=== PATIENT | female | born 1985 | race Caucasian/White ===

== ENCOUNTER → 2017-03-30 09:41 | Outpatient (CLI) | payer BC ==
[2009-11-07 07:42] VITALS: BMI 28.3
== END | disposition home or self-care (01) ==
LOC: D.NM 09:41
DX: R10.11 Right upper quadrant pain (principal)

== ENCOUNTER 2017-04-17 08:03 | Day surgery (SDC) | payer BC ==
[2017-04-16 09:47] LABS: HEMOGLOBIN 14.7 g/dL (12-16)
[~2017-04-17] VITALS: Ht 154.9 cm; Wt 74.8 kg
--- NOTE | ~2017-04-17 | HP ---
PATIENT: DERREK BLACKBURN MEDICAL RECORD: [id number] ACCOUNT: [id number] LOCATION:[facility] : 87 ADMISSION DATE: 04/17/17 HISTORY AND PHYSICAL EXAMINATION HISTORY OF PRESENT ILLNESS: The patient has biliary dyskinesia. She had low ejection fraction. She has a chronically high white count. This has already been worked up. She is to under go laparoscopic cholecystectomy, intraoperative cholangiography with a possible liver biopsy. The risks, possible complications and alternatives to the procedure were explained to the patient. She elects to proceed. This includes the risk of bleeding requiring an emergency reoperation, infection, common ductal injury and an open procedure. Her history and physical examination is unchanged from the history and physical on the chart. TRANSINT:[id number] Voice Confirmation ID: [id number] DOCUMENT ID: [id number] BANDAR WRIGHT MD CC: SERINA REYES MD and JERAMIE BALLARD MD [id number] DICTATION DATE: 04/17/17 1244 GENERAL MANAGER IN TRAINING: 04/17/17 1259 [address] [place] [id number] [place] [id number]
--- NOTE | ~2017-04-17 | OP ---
PATIENT NAME: DERREK BLACKBURN MEDICAL RECORD: [id number] :87 LOCATION:[facility] ADMISSION DATE: SURGEON: BANDAR WRIGHT MD DATE OF OPERATION: 04/17/2017 PREOPERATIVE DIAGNOSIS: Biliary dyskinesia. POSTOPERATIVE DIAGNOSIS: Biliary dyskinesia with hepatomegaly. PROCEDURES: 1. Laparoscopic cholecystectomy, intraoperative cholangiography without immediate surgeon interpretation. 2. An 18-gauge core needle liver biopsy. SURGEON: Bandar Wright MD. CANDY FORMING MACHINE OPERATOR: None. BLOOD LOSS: Minimal. ANESTHESIA: General. COMPLICATIONS: None. The risks, possible complications and alternatives to procedure were explained to the patient. She elects to proceed. OPERATIVE COURSE: The patient was conveyed to the operating room electively on 04/17/2017. General anesthesia was induced by the anesthesia staff. The abdomen was sterilely prepped and draped. A small skin shea was accomplished in the left upper quadrant. A Veress needle was inserted through the skin shea into the peritoneal cavity. CO2 insufflation was begun. Once a sufficient pneumoperitoneum had been achieved, a 5-mm trocar was inserted through an incision in the right upper quadrant. Under direct internal vision utilizing a television camera, a 12-mm trocar was inserted through an incision at the umbilicus. Another 5-mm trocar was inserted through an incision in the epigastrium. Another 5-mm trocar was inserted through an incision far laterally in the right upper quadrant. During insertion of the Veress needle and all trocars, there appeared to have been no injury to the bowels, any intraperitoneal or retroperitoneal structures. The indication for the liver biopsy was hepatomegaly. Under laparoscopic guidance, I percutaneously accessed the right upper quadrant with a biopsy device. Core needle liver biopsies were obtained over the convexity of the liver. The biopsy sites were made hemostatic with electrocautery. I then advanced a cholangiogram trocar. I punctured the fundus of the gallbladder. I aspirated bile. I then injected dye. Under real time fluoroscopy, cholangiographic images were obtained. These images were sent to the radiologist for interpretation. I aspirated bile and then withdrew the cholangiogram trocar. The gallbladder was grasped and retracted cephalad. The infundibulum was grasped and retracted laterally. Blunt dissection was begun on the triangle of Calot. Two cystic arteries and one cystic duct were identified. These were clipped multiply and divided between clips. OPERATIVE REPORT [id number] DERREK BLACKBURN The gallbladder was then excised from its bed in the liver. It was placed within a bag retrieval device and was withdrawn through the umbilical fascia defect. The 12-mm trocar was placed and the abdomen reinsufflated. I irrigated and aspirated in the right upper quadrant. There was no bleeding even at low pressure of 8. The Je-Joshua suture closure device and 0 Vicryl sutures were used to close the umbilical fascia. All the trocars were removed and the abdomen desufflated. The umbilical skin was approximated with interrupted 4-0 Vicryl Rapide sutures. The other skin incisions were closed with an intracuticular 3-0 Vicryls. Benzoin and Steri-Strips were applied. The patient was then extubated and conveyed to post-anesthesia care unit where she was in stable condition. TRANSINT:[id number] Voice Confirmation ID: [id number] DOCUMENT ID: [id number] BANDAR WRIGHT MD CC: SERINA REYES MD and JERAMIE BALLARD MD [id number] DICTATION DATE: 04/17/17 125 FUNDER: 04/17/171942 [facility] 04/17/17 [facility] [address] [place] [address]
[2017-04-17 08:46] VITALS: BP 115/78; Ht 154.9 cm; Wt 74.8 kg
[2017-04-17] MEDS ORDERED: TYLENOL W/CODEI1 TAB (09:03)
[2017-04-17] MEDS ORDERED: PHENERGAN25 M1 PO (09:03)
[2017-04-17 11:03] LABS: HCG URINE NEGATIVE (NEGATIVE)
[2017-04-17 11:17] LABS: HEMATOCRIT 47.3 % (36.0-48.0); MCHC 31.3 g/dL (31.0-37.0); MCV 89.4 fL (80.0-100.0); MEAN PLATELET VOLUME 11.7 fL (7.4-10.4); RBC 5.29 10x6/uL (4.00-5.40); WBC 11.6 10x3/uL (4.8-10.8)
--- NOTE | 2017-04-17 15:59 | NUR ---
1400 IV DC WITH CATHER TIP INTACT
== END 2017-04-17 14:10 | disposition home or self-care (01) ==
LOC: D.OPS 08:03 → D.PAN 09:45 → D.OPS 10:00 → D.PAN 10:45 → D.OPS 10:45 → D.PAN 12:45 → D.OPS 14:00 → D.PAN 14:00 → D.OPS 14:10
PROVIDERS: Anesthesiology; Surgery
DX: K82.8 Other specified diseases of gallbladder (principal); R16.0 Hepatomegaly, not elsewhere classified; F17.200 Nicotine dependence, unspecified, uncomplicated; Z01.812 Encounter for preprocedural laboratory examination

== ENCOUNTER → 2017-04-21 | Emergency (ER) | payer BC ==
[2017-04-17 08:46] VITALS: BMI 31.2
[~2017-04-21] MED LIST: PHENERGAN25 M1 PO; TYLENOL W/CODEI1 TAB
[2017-04-21 15:21] LABS: BASOPHILS 0.2 % (0-2); EOSINOPHILS 2.3 % (0-7); HEMATOCRIT 41.9 % (36.0-48.0); HEMOGLOBIN 14.2 g/dL (12-16); IMMATURE GRANULOCYTES 0.4 % (0-5); LYMPHOCYTES 26.4 % (15-50); MCH 28.2 pg (26.0-34.0); MCHC 33.9 g/dL (31.0-37.0); MCV 83.1 fL (80.0-100.0); MEAN PLATELET VOLUME 9.5 fL (7.4-10.4); MONOCYTES 7.4 % (2-11); NEUTROPHILS 63.3 % (40-80); PLATELET COUNT 285 10x3/uL (130-400); RBC 5.04 10x6/uL (4.00-5.40); WBC 12.4 10x3/uL (4.8-10.8)
[2017-04-21 15:44] LABS: APPEARANCE CLEAR (CLEAR); COLOR YELLOW (YELLOW)
[2017-04-21 15:45] LABS: BILIRUBIN NEGATIVE (NEGATIVE); GLUCOSE NEGATIVE (NEGATIVE); KETONE NEGATIVE (NEGATIVE); LEUKOCYTE ESTERASE TRACE (NEGATIVE); NITRITE NEGATIVE (NEGATIVE); PROTEIN NEGATIVE (NEGATIVE); UROBILINOGEN NORMAL (NORMAL)
[2017-04-21 15:47] LABS: EPITHELIAL CELLS 0-5 /hpf (0-5); RED CELLS - URINE OCC /hpf (0-5); WHITE CELLS - URINE 0-5 /hpf (0-5)
[2017-04-21 15:48] LABS: BACTERIA FEW /hpf (NONE SEEN); HCG URINE NEGATIVE (NEGATIVE)
[2017-04-21 16:10] LABS: ALBUMIN 3.5 g/dL (3.4-5.0); ALKALINE PHOSPHATASE 37 U/L (46-116); ALT (SGPT) 34 U/L (10-68); AMYLASE - SERUM 32 U/L (25-115); CALC OSMOLALITY 276 mosm/kg (275-300); CARBON DIOXIDE 25.7 mmol/L (21.0-32.0); CHLORIDE - SERUM 104 mmol/L (98-107); CREATININE - SERUM 0.8 mg/dL (0.6-1.3); GLUCOSE 98 mg/dL (74-106); LIPASE 106 U/L (73-393); POTASSIUM - SERUM 3.8 mmol/L (3.5-5.1); PROTEIN - SERUM 6.8 g/dL (6.4-8.2); SODIUM 140 mmol/L (136-145); UREA NITROGEN 8 mg/dL (7-18); eGFR NON AFRICAN AMERICAN 89 mL/min (90-120)
== END | disposition home or self-care (01) ==
LOC: D.ER 14:18
PROVIDERS: Nurse Practitioner Acute Care
DX: G89.18 Other acute postprocedural pain (principal); F17.200 Nicotine dependence, unspecified, uncomplicated

== ENCOUNTER → 2018-06-16 15:05 | Outpatient (CLI) | payer OTHER ==
[2017-04-17 08:46] VITALS: BMI 31.2
== END | disposition home or self-care (01) ==
LOC: D.MRI 15:05
DX: M54.2 Cervicalgia (principal)